=== PATIENT | female | born 1940 | race African-American/Black ===

== ENCOUNTER 2017-08-24 17:34 | Inpatient (IN) | payer MEDICARE, BC ==
[~2017-08-24] VITALS: Ht 182.9 cm; Wt 59.0 kg
[2017-08-24] MEDS ORDERED: ACETAMINOPHEN 325MG TABLET PO PRN (18:45)
[2017-08-24 20:00] VITALS: BP 117/66
[2017-08-24 20:20] VITALS: BP 117/66
[2017-08-25] MEDS: LEVOFLOXACIN 250MG PREMIX 50 ML IV SCH (00:24)
[2017-08-25 08:00] VITALS: BP 98/64
[2017-08-25] MEDS ORDERED: INFLUENZA VIRUS VACCINE 0.5ML SYR IM ONE (08:00)
[2017-08-25] MEDS: CALCIUM CARBONATE/VITAMIN D3 500MG TABLET PO SCH ×2 (08:17→16:45)
[2017-08-25] MEDS: DOCUSATE SODIUM 100MG CAPSULE PO SCH ×2 (08:18→16:45)
[2017-08-25] MEDS: HYDROCODONE/APAP 7.5/325MG 1 TAB TABLET PO PRN ×2 (08:18→12:50)
[2017-08-25] MEDS ORDERED: PNEUMOCOCCAL 23-VAL P-SAC VAC 0.5 ML IM ONE (09:00)
[2017-08-25] MEDS: SILVER SULFADIAZINE 1% CREAM 50GM TOP SCH (10:02)
[2017-08-25] MEDS: ENOXAPARIN 30MG/0.3ML SYR SUBCUT SCH (10:03)
[2017-08-25 20:00] VITALS: BP 105/64
[2017-08-26] MEDS: LEVOFLOXACIN 250MG PREMIX 50 ML IV SCH (00:21)
[2017-08-26] MEDS: ACETAMINOPHEN 325MG TABLET PO PRN (00:22)
[2017-08-26 07:08] LABS: BASOPHILS % 0.8 % (0.0-2.0); EOSINOPHILS % 3.6 % (0.0-5.0); HEMATOCRIT. 24.7 % (36.0-48.0); HEMOGLOBIN. 8.5 g/dL (12.0-16.0); LYMPHOCYTES % 28.4 % (20.0-50.0); MEAN CORPUSCULAR HEMOGLOBIN 31.1 pg (28.0-32.0); MEAN CORPUSCULAR VOLUME 90.3 fL (81.0-99.0); MEAN PLATELET VOLUME 8.4 fl (7.4-10.4); MONOCYTES % 12.1 % (2.0-8.0); NEUTROPHILS % 55.1 % (40.0-76.0); PLATELET 251 x1000/uL (130-400); RED BLOOD CELL COUNT 2.73 mill/uL (4.2-5.4); RED CELL DISTRIBUTION WIDTH 16.4 % (11.6-14.6)
[2017-08-26 07:48] LABS: CHLORIDE 103 mEq/L (98-107)
[2017-08-26] MEDS: DOCUSATE SODIUM 100MG CAPSULE PO SCH ×2 (08:11→17:45)
[2017-08-26] MEDS: ENOXAPARIN 30MG/0.3ML SYR SUBCUT SCH (08:11)
[2017-08-26] MEDS: CALCIUM CARBONATE/VITAMIN D3 500MG TABLET PO SCH ×2 (08:11→17:44)
[2017-08-26] MEDS: HYDROCODONE/APAP 7.5/325MG 1 TAB TABLET PO PRN ×2 (08:12→13:45)
[2017-08-26] MEDS: SILVER SULFADIAZINE 1% CREAM 50GM TOP SCH (08:13)
[2017-08-26 08:32] VITALS: BP 121/70
[2017-08-26 20:00] VITALS: BP 101/59
[2017-08-27 08:00] VITALS: BP 113/56
[2017-08-27] MEDS: DOCUSATE SODIUM 100MG CAPSULE PO SCH ×2 (08:46→17:34)
[2017-08-27] MEDS: ENOXAPARIN 30MG/0.3ML SYR SUBCUT SCH (08:46)
[2017-08-27] MEDS: SILVER SULFADIAZINE 1% CREAM 50GM TOP SCH (08:46)
[2017-08-27] MEDS: CALCIUM CARBONATE/VITAMIN D3 500MG TABLET PO SCH ×2 (08:46→17:34)
[2017-08-27] MEDS: HYDROCODONE/APAP 7.5/325MG 1 TAB TABLET PO PRN (08:53)
[2017-08-27] MEDS: ACETAMINOPHEN 325MG TABLET PO PRN (14:24)
[2017-08-27 20:00] VITALS: BP 99/63
[2017-08-28] MEDS: HYDROCODONE/APAP 7.5/325MG 1 TAB TABLET PO PRN ×2 (01:08→16:29)
[2017-08-28 08:00] VITALS: BP 94/63
[2017-08-28] MEDS: ENOXAPARIN 30MG/0.3ML SYR SUBCUT SCH (09:26)
[2017-08-28] MEDS: CALCIUM CARBONATE/VITAMIN D3 500MG TABLET PO SCH ×2 (09:26→16:26)
[2017-08-28] MEDS: DOCUSATE SODIUM 100MG CAPSULE PO SCH ×2 (09:26→16:26)
[2017-08-28] MEDS: SILVER SULFADIAZINE 1% CREAM 50GM TOP SCH (12:54)
[2017-08-28 20:00] VITALS: BP_SYST 164; BP_SYST 97; BP_DIAS 53; BP_DIAS 58
[2017-08-29 08:00] VITALS: BP 108/68
[2017-08-29] MEDS: ENOXAPARIN 30MG/0.3ML SYR SUBCUT SCH (08:16)
[2017-08-29] MEDS: DOCUSATE SODIUM 100MG CAPSULE PO SCH ×2 (08:16→16:19)
[2017-08-29] MEDS: SILVER SULFADIAZINE 1% CREAM 50GM TOP SCH (08:16)
[2017-08-29] MEDS: CALCIUM CARBONATE/VITAMIN D3 500MG TABLET PO SCH ×2 (08:16→16:19)
[2017-08-29] MEDS: ACETAMINOPHEN 325MG TABLET PO PRN ×2 (08:17→16:49)
[2017-08-29] MEDS: MAGNESIUM HYDROXIDE 400MG/5ML 30ML UDC PO PRN (18:18)
[2017-08-29 20:03] VITALS: BP 89/53
[2017-08-30] MEDS: ACETAMINOPHEN 325MG TABLET PO PRN ×3 (01:28→23:50)
[2017-08-30] MEDS: MAGNESIUM HYDROXIDE 400MG/5ML 30ML UDC PO PRN (06:08)
[2017-08-30 08:00] VITALS: BP 107/69
[2017-08-30] MEDS: ENOXAPARIN 30MG/0.3ML SYR SUBCUT SCH (09:12)
[2017-08-30] MEDS: DOCUSATE SODIUM 100MG CAPSULE PO SCH ×2 (09:12→17:28)
[2017-08-30] MEDS: CALCIUM CARBONATE/VITAMIN D3 500MG TABLET PO SCH ×2 (09:12→17:28)
[2017-08-30] MEDS: SILVER SULFADIAZINE 1% CREAM 50GM TOP SCH (09:13)
[2017-08-30 20:00] VITALS: BP 104/68
[2017-08-31 08:30] VITALS: BP 112/73
[2017-08-31] MEDS: HYDROCODONE/APAP 7.5/325MG 1 TAB TABLET PO PRN (08:33)
[2017-08-31] MEDS: ENOXAPARIN 30MG/0.3ML SYR SUBCUT SCH (09:10)
[2017-08-31] MEDS: DOCUSATE SODIUM 100MG CAPSULE PO SCH ×2 (09:10→16:31)
[2017-08-31] MEDS: CALCIUM CARBONATE/VITAMIN D3 500MG TABLET PO SCH ×2 (09:10→16:31)
[2017-08-31] MEDS: SILVER SULFADIAZINE 1% CREAM 50GM TOP SCH (09:11)
[2017-08-31] MEDS: ACETAMINOPHEN 325MG TABLET PO PRN ×2 (13:52→22:01)
[2017-08-31 20:00] VITALS: BP_SYST 108; BP_SYST 113; BP_DIAS 52; BP_DIAS 68
[2017-09-01 06:37] LABS: BASOPHILS % 2.2 % (0.0-2.0); EOSINOPHILS % 4.1 % (0.0-5.0); HEMATOCRIT. 24.8 % (36.0-48.0); HEMOGLOBIN. 8.6 g/dL (12.0-16.0); LYMPHOCYTES % 29.3 % (20.0-50.0); MEAN CORPUSCULAR HEMOGLOBIN 31.2 pg (28.0-32.0); MEAN CORPUSCULAR VOLUME 90.2 fL (81.0-99.0); MONOCYTES % 10.9 % (2.0-8.0); NEUTROPHILS % 53.5 % (40.0-76.0); PLATELET 324 x1000/uL (130-400); RED BLOOD CELL COUNT 2.75 mill/uL (4.2-5.4); RED CELL DISTRIBUTION WIDTH 16.9 % (11.6-14.6)
[2017-09-01 08:00] VITALS: BP 107/83
[2017-09-01] MEDS: DOCUSATE SODIUM 100MG CAPSULE PO SCH ×2 (08:00→16:24)
[2017-09-01] MEDS: CALCIUM CARBONATE/VITAMIN D3 500MG TABLET PO SCH ×2 (08:00→16:24)
[2017-09-01] MEDS: SILVER SULFADIAZINE 1% CREAM 50GM TOP SCH (08:00)
[2017-09-01] MEDS: ENOXAPARIN 30MG/0.3ML SYR SUBCUT SCH (08:00)
[2017-09-01] MEDS: HYDROCODONE/APAP 7.5/325MG 1 TAB TABLET PO PRN ×2 (08:22→17:15)
[2017-09-01 20:00] VITALS: BP 103/68
[2017-09-02] MEDS: ACETAMINOPHEN 325MG TABLET PO PRN ×3 (03:08→16:17)
[2017-09-02 08:11] VITALS: BP 119/74
[2017-09-02] MEDS: DOCUSATE SODIUM 100MG CAPSULE PO SCH ×2 (09:03→16:18)
[2017-09-02] MEDS: CALCIUM CARBONATE/VITAMIN D3 500MG TABLET PO SCH ×2 (09:03→16:17)
[2017-09-02] MEDS: ENOXAPARIN 30MG/0.3ML SYR SUBCUT SCH (09:04)
[2017-09-02] MEDS: SILVER SULFADIAZINE 1% CREAM 50GM TOP SCH (09:08)
[2017-09-02 20:00] VITALS: BP 113/56
[2017-09-03 08:00] VITALS: BP 106/59
[2017-09-03] MEDS: DOCUSATE SODIUM 100MG CAPSULE PO SCH ×2 (08:51→16:22)
[2017-09-03] MEDS: CALCIUM CARBONATE/VITAMIN D3 500MG TABLET PO SCH ×2 (08:51→16:22)
[2017-09-03] MEDS: ENOXAPARIN 30MG/0.3ML SYR SUBCUT SCH (08:51)
[2017-09-03] MEDS: ACETAMINOPHEN 325MG TABLET PO PRN ×2 (08:51→23:47)
[2017-09-03] MEDS: SILVER SULFADIAZINE 1% CREAM 50GM TOP SCH (08:52)
[2017-09-03] MEDS: IBUPROFEN 600MG TABLET PO PRN (15:54)
[2017-09-03 20:00] VITALS: BP 97/63
[2017-09-03 21:20] VITALS: BP 105/62
[2017-09-04] MEDS: HYDROCODONE/APAP 7.5/325MG 1 TAB TABLET PO PRN ×2 (06:33→13:56)
[2017-09-04 08:00] VITALS: BP 108/70
[2017-09-04] MEDS: ENOXAPARIN 30MG/0.3ML SYR SUBCUT SCH (09:33)
[2017-09-04] MEDS: CALCIUM CARBONATE/VITAMIN D3 500MG TABLET PO SCH ×2 (09:33→18:51)
[2017-09-04] MEDS: DOCUSATE SODIUM 100MG CAPSULE PO SCH ×2 (09:33→18:51)
[2017-09-04] MEDS: SILVER SULFADIAZINE 1% CREAM 50GM TOP SCH (18:51)
[2017-09-04 20:00] VITALS: BP 97/59
[2017-09-04 22:01] VITALS: BP 99/70
[2017-09-04] MEDS: ACETAMINOPHEN 325MG TABLET PO PRN (22:01)
[2017-09-05] MEDS: HYDROCODONE/APAP 7.5/325MG 1 TAB TABLET PO PRN (05:31)
[2017-09-05 05:33] VITALS: BP 116/77
[2017-09-05 08:12] VITALS: BP 111/67
[2017-09-05] MEDS: DOCUSATE SODIUM 100MG CAPSULE PO SCH ×2 (08:32→17:15)
[2017-09-05] MEDS: ENOXAPARIN 30MG/0.3ML SYR SUBCUT SCH (08:32)
[2017-09-05] MEDS: SILVER SULFADIAZINE 1% CREAM 50GM TOP SCH (08:32)
[2017-09-05] MEDS: CALCIUM CARBONATE/VITAMIN D3 500MG TABLET PO SCH ×2 (08:32→17:15)
[2017-09-05] MEDS: IBUPROFEN 600MG TABLET PO PRN (13:31)
[2017-09-05 20:00] VITALS: BP 109/62
[2017-09-06] MEDS: ACETAMINOPHEN 325MG TABLET PO PRN (00:36)
[2017-09-06 08:00] VITALS: BP 120/77
[2017-09-06] MEDS: CALCIUM CARBONATE/VITAMIN D3 500MG TABLET PO SCH ×2 (08:19→17:08)
[2017-09-06] MEDS: DOCUSATE SODIUM 100MG CAPSULE PO SCH ×2 (08:19→17:08)
[2017-09-06] MEDS: ENOXAPARIN 30MG/0.3ML SYR SUBCUT SCH (08:19)
[2017-09-06 09:17] LABS: BASOPHILS % 0.2 % (0.0-2.0); EOSINOPHILS % 3.2 % (0.0-5.0); HEMATOCRIT. 31.6 % (36.0-48.0); HEMOGLOBIN. 10.5 g/dL (12.0-16.0); LYMPHOCYTES % 35.6 % (20.0-50.0); MEAN CORPUSCULAR HEMOGLOBIN 29.8 pg (28.0-32.0); MEAN CORPUSCULAR VOLUME 89.5 fL (81.0-99.0); MEAN PLATELET VOLUME 8.1 fl (7.4-10.4); MONOCYTES % 8.8 % (2.0-8.0); NEUTROPHILS % 52.2 % (40.0-76.0); PLATELET 490 x1000/uL (130-400); RED BLOOD CELL COUNT 3.53 mill/uL (4.2-5.4); RED CELL DISTRIBUTION WIDTH 17.3 % (11.6-14.6)
[2017-09-06] MEDS: SILVER SULFADIAZINE 1% CREAM 50GM TOP SCH (11:36)
[2017-09-06 15:40] VITALS: BP 108/62
[2017-09-06] MEDS: HYDROCODONE/APAP 7.5/325MG 1 TAB TABLET PO PRN (15:53)
[2017-09-06 20:40] VITALS: BP 106/67
[2017-09-07] MEDS: HYDROCODONE/APAP 7.5/325MG 1 TAB TABLET PO PRN (04:18)
[2017-09-07 08:00] VITALS: BP 113/65
[2017-09-07] MEDS: CALCIUM CARBONATE/VITAMIN D3 500MG TABLET PO SCH ×2 (08:48→18:21)
[2017-09-07] MEDS: DOCUSATE SODIUM 100MG CAPSULE PO SCH ×2 (08:48→18:21)
[2017-09-07] MEDS: SILVER SULFADIAZINE 1% CREAM 50GM TOP SCH (08:49)
[2017-09-07] MEDS: ENOXAPARIN 30MG/0.3ML SYR SUBCUT SCH (08:49)
[2017-09-07] MEDS: IBUPROFEN 600MG TABLET PO PRN (09:07)
[2017-09-07 20:00] VITALS: BP 110/67
[2017-09-07] MEDS: ACETAMINOPHEN 325MG TABLET PO PRN (23:03)
[2017-09-08] MEDS: HYDROCODONE/APAP 7.5/325MG 1 TAB TABLET PO PRN (07:56)
[2017-09-08 08:00] VITALS: BP 124/64
[2017-09-08] MEDS: CALCIUM CARBONATE/VITAMIN D3 500MG TABLET PO SCH ×2 (08:25→17:05)
[2017-09-08] MEDS: ENOXAPARIN 30MG/0.3ML SYR SUBCUT SCH (08:25)
[2017-09-08] MEDS: DOCUSATE SODIUM 100MG CAPSULE PO SCH ×2 (08:25→17:05)
[2017-09-08] MEDS: SILVER SULFADIAZINE 1% CREAM 50GM TOP SCH (08:26)
[2017-09-08] MEDS: ACETAMINOPHEN 325MG TABLET PO PRN (14:58)
[2017-09-08 20:00] VITALS: BP 106/63
[2017-09-09] MEDS: HYDROCODONE/APAP 7.5/325MG 1 TAB TABLET PO PRN (00:25)
[2017-09-09 08:00] VITALS: BP 113/64
[2017-09-09] MEDS: CALCIUM CARBONATE/VITAMIN D3 500MG TABLET PO SCH ×2 (11:35→17:32)
[2017-09-09] MEDS: ENOXAPARIN 30MG/0.3ML SYR SUBCUT SCH (11:35)
[2017-09-09] MEDS: DOCUSATE SODIUM 100MG CAPSULE PO SCH ×2 (11:35→17:32)
[2017-09-09] MEDS: SILVER SULFADIAZINE 1% CREAM 50GM TOP SCH (11:36)
[2017-09-09 12:57] VITALS: BP 119/72
[2017-09-09 15:25] VITALS: BP 110/67
[2017-09-09] MEDS: IBUPROFEN 600MG TABLET PO PRN (15:25)
== END 2017-09-09 19:10 | disposition home or self-care (01) | DRG 536 ==
PROVIDERS: ADMIT Psychiatry & Neurology Neurology; ATTEND Internal Medicine Critical Care Medicine
DX: S72.141A Displaced intertrochanteric fracture of right femur, initial encounter for closed fracture (principal); G62.9 Polyneuropathy, unspecified; D57.3 Sickle-cell trait; N39.0 Urinary tract infection, site not specified; I70.0 Atherosclerosis of aorta; M81.0 Age-related osteoporosis without current pathological fracture; T23.001A Burn of unspecified degree of right hand, unspecified site, initial encounter; Z96.642 Presence of left artificial hip joint; M54.5 Low back pain; K59.00 Constipation, unspecified; G89.29 Other chronic pain; D64.9 Anemia, unspecified; R26.9 Unspecified abnormalities of gait and mobility; E55.9 Vitamin D deficiency, unspecified; M17.11 Unilateral primary osteoarthritis, right knee; F39 Unspecified mood [affective] disorder; W18.39XA Other fall on same level, initial encounter; Z94.7 Corneal transplant status; Y92.090 Kitchen in other non-institutional residence as the place of occurrence of the external cause; Y93.89 Activity, other specified; Y99.8 Other external cause status
CPT/HCPCS: 36415; 80053; 85025; 90686; 90732; 92523; 93970; 97110; 97116; 97150; 97163; 97166; 97530; 97535; G0515; J1650; J1956; J7040

== ENCOUNTER 2019-06-01 00:35 | Emergency (ER) | payer MEDICARE, BC ==
[~2019-06-01] VITALS: Ht 182.9 cm; Wt 68.0 kg
[2019-06-01 02:07] LABS: CLARITY URINE TURBID (CLEAR); COLOR URINE DARK YELLOW (YELLOW); KETONES URINE NEGATIVE (NEGATIVE); LEUKOCYTE ESTERASE URINE 2+ (NEGATIVE); NITRITE URINE NEGATIVE (NEGATIVE); OCCULT BLOOD URINE NEGATIVE (NEGATIVE); PH URINE 8.5 (4.5-8.0); PROTEIN URINE TRACE (NEGATIVE); SPECIFIC GRAVITY URINE 1.013 (1.005-1.030)
[2019-06-01] MEDS ORDERED: SODIUM CHLORIDE 0.9% 1,000 ML IV ONE (03:08)
[2019-06-01] MEDS ORDERED: ONDANSETRON HCL 4MG/2ML INJ IV STA (03:08)
[2019-06-01] MEDS ORDERED: CEFTRIAXONE 2 G PREMIX 50 ML IV NR (03:30)
[2019-06-01 03:51] LABS: BASOPHILS % 1.5 % (0.0-2.0); CHLORIDE 97 mEq/L (98-107); EOSINOPHILS % 0.6 % (0.0-5.0); HEMATOCRIT. 32.4 % (36.0-48.0); HEMOGLOBIN. 11.1 g/dL (12.0-16.0); INR 1.1; MEAN CORPUSCULAR HEMOGLOBIN 32.1 pg (28.0-32.0); MEAN CORPUSCULAR VOLUME 93.5 fL (81.0-99.0); MEAN PLATELET VOLUME 9.2 fl (7.4-10.4); MONOCYTES % 7.6 % (2.0-8.0); NEUTROPHILS % 52.3 % (40.0-76.0); PLATELET 297 x1000/uL (130-400); PROTHROMBIN TIME 11.4 sec (9.6-11.0); RED BLOOD CELL COUNT 3.47 mill/uL (4.2-5.4); RED CELL DISTRIBUTION WIDTH 16.7 % (11.6-14.6)
[2019-06-01 04:58] VITALS: BP 131/62
== END 2019-06-01 04:59 | disposition home or self-care (01) ==
LOC: ER 00:35
DX: K52.9 Noninfective gastroenteritis and colitis, unspecified (principal); N39.0 Urinary tract infection, site not specified; Z96.649 Presence of unspecified artificial hip joint
CPT/HCPCS: 36415; 74176; 80053; 81003; 83605; 83690; 83880; 85025; 85610; 96365; 96375; 99284; J0696; J2405; J7030

== ENCOUNTER 2019-06-04 02:05 | Emergency (ER) | payer MEDICARE, BC ==
[~2019-06-04] VITALS: Ht 177.8 cm; Wt 66.0 kg
[2019-06-04 05:57] LABS: HEMATOCRIT. 30.5 % (36.0-48.0); HEMOGLOBIN. 10.4 g/dL (12.0-16.0); MEAN CORPUSCULAR HEMOGLOBIN 32.2 pg (28.0-32.0); MEAN CORPUSCULAR VOLUME 94.4 fL (81.0-99.0); MEAN PLATELET VOLUME 9.3 fl (7.4-10.4); PLATELET 286 x1000/uL (130-400); RED BLOOD CELL COUNT 3.23 mill/uL (4.2-5.4); RED CELL DISTRIBUTION WIDTH 17.1 % (11.6-14.6)
[2019-06-04 06:08] LABS: CHLORIDE 103 mEq/L (98-107)
[2019-06-04 07:02] LABS: NUCLEATED RED BLOOD CELLS 4 /100 WBC
[2019-06-04 07:04] LABS: PLATELET ESTIMATE NORMAL
[2019-06-04] MEDS ORDERED: DICYCLOMINE HCL 10MG/ML 2ML AMP IM ONE (07:30)
[2019-06-04] MEDS ORDERED: METOCLOPRAMIDE HCL 10MG/2ML VIAL IV ONE (07:30)
[2019-06-04] MEDS ORDERED: IOHEXOL-300 100 ML BOTTLE ONE (08:37)
[2019-06-04 09:47] LABS: CLARITY URINE CLEAR (CLEAR); COLOR URINE YELLOW (YELLOW); KETONES URINE NEGATIVE (NEGATIVE); LEUKOCYTE ESTERASE URINE 2+ (NEGATIVE); NITRITE URINE NEGATIVE (NEGATIVE); OCCULT BLOOD URINE NEGATIVE (NEGATIVE); PROTEIN URINE NEGATIVE (NEGATIVE); SPECIFIC GRAVITY URINE 1.019 (1.005-1.030); UROBILINOGEN URINE 0.2 E.U./dL (0.2-1.0)
[2019-06-04 13:33] VITALS: BP 128/69
== END 2019-06-04 13:40 | disposition home or self-care (01) ==
LOC: ER 02:05
DX: K59.00 Constipation, unspecified (principal); R53.1 Weakness; R41.82 Altered mental status, unspecified
CPT/HCPCS: 36415; 70450; 71045; 74177; 80053; 81003; 83880; 84484; 85025; 93005; 96372; 96374; 99284; J0500; J2765; Q9967